=== PATIENT | male | born 1955 | race African-American/Black ===

== ENCOUNTER 2020-10-14 09:12 | Outpatient (CLI) | payer MEDICARE, MEDICAID, SELFPAY ==
[2020-10-14 11:03] LABS: Anion Gap 6 mmol/L (8-16); Blood Urea Nitrogen 19 mg/dL (9-20); Calcium 9.6 mg/dL (8.4-10.2); Carbon Dioxide 30 mmol/L (22-30); Chloride 105 mmol/L (98-107); Estimated Glomerular Filt Rate > 60; Glucose 107 mg/dL (75-110); Sodium 141 mmol/L (137-145)
[2020-10-14 11:25] LABS: Hemoglobin A1C 5.4 % (<5.7)
== END 2020-10-14 09:13 | disposition home or self-care (01) ==
PROVIDERS: Anesthesiology; PCP Family Medicine; Visit Provider Urology
DX: N52.9 Male erectile dysfunction, unspecified (principal); Z79.899 Other long term (current) drug therapy; Z01.818 Encounter for other preprocedural examination
CPT/HCPCS: 36415; 80048; 83036; 87086

== ENCOUNTER 2020-10-30 00:41 | Outpatient (CLI) | payer MEDICARE, MEDICAID, SELFPAY ==
[2020-10-30 18:47] LABS: SARS-CoV-2 RNA PCR Negative
== END 2020-10-30 00:42 | disposition home or self-care (01) ==
LOC: ANHCOVIDDT 00:42
PROVIDERS: PCP Family Medicine; Visit Provider Urology
DX: Z01.812 Encounter for preprocedural laboratory examination (principal); Z20.822 Contact with and (suspected) exposure to COVID-19
CPT/HCPCS: C9803; U0003; U0005

== ENCOUNTER 2020-11-03 01:24 | Day surgery (SDC) | payer MEDICARE, MEDICAID, SELFPAY ==
[2020-10-14 09:43] VITALS: BP 132/76; PULSE 74; RESP 18; TEMP 36.2; O2SAT 97; BMI 41.3
[2020-11-03] VITALS (13 sets, daily range): BP systolic 111–174; BP diastolic 61–101; PULSE 75–82; RESP 18–23; TEMP 36.1–36.6; O2SAT 96–100
[2020-11-03] MEDS: LACTATED RINGERS 1,000 ML 30 ML IV CONT (10:25)
--- NOTE | 2020-11-03 11:27 | P.PNAN_ITS ---
Anes - Initial Pre Proc Eval Procedure: Operation Date: 11/03/20 12:00 Proposed Procedures p Insertion Inflatable Penile Prosthesis - Christian Muir MD Date/Time: 11/03/20 11:27 Surgeon: Christian Muir MD Pre Op Diagnosis: erectile dysfunction Patient Data Age: 65 Gender: M Height: 6 ft 2.5 in Weight: 146.9 kg Last Vital Signs Temp 97.0 F L 11/03/20 10:03 Pulse 77 11/03/20 10:03 Resp 20 11/03/20 10:03 BP 120/76 11/03/20 10:03 Pulse Ox 100 11/03/20 10:03 Allergies Allergy/AdvReac Type Severity Reaction Status Date / Time No Known Allergies Allergy Verified 10/14/20 09:28 Home Medications Medication Instructions Recorded Confirmed Type allopurinol 30 mg PO QAM 10/14/20 11/03/20 History bicalutamide 50 mg PO QAM 10/14/20 11/03/20 History dabigatran etexilate [Pradaxa] 150 mg PO BID 10/14/20 11/03/20 History furosemide 40 mg PO QAM 10/14/20 11/03/20 History isosorbide mononitrate 30 mg PO QAM 10/14/20 11/03/20 History lisinopril 20 mg PO QAM 10/14/20 11/03/20 History metoprolol succinate 100 mg PO BID 10/14/20 11/03/20 History spironolactone 12.5 mg PO QAM 10/14/20 11/03/20 History Patient hx anesthesia problems: none Family hx anesthesia problems: none [facility] Past Medical History Medical History (Updated 11/03/20 @ 11:27 by David Diaz MD) Atrial fibrillation H/O colon cancer, stage I H/O prostate cancer Hyperlipidemia Hypertension MICAELA (obstructive sleep apnea) Surgical History Surgical History (Updated 11/03/20 @ 11:27 by David Diaz MD) AICD (automatic cardioverter/defibrillator) present Social History Social History (System 09/08/19 @ 13:00 by Soraya Lugo) Smoking packs per day: 1 Smoking cigarettes per day: 20.0 Years smoked: 50 Smoking pack-years: 50.00 Smoking status: Current every day smoker Tobacco type: cigarettes Alcohol intake: current Drinks per week: 8 Substance use: never Living arrangements: alone Spiritual care concerns: No Anes - Eval Final PreProcedure Day of Procedure 11/03/20 11:27 Patient weight: morbidly obese Heart: regular rate and rhythm Lungs: clear to auscultation Airway: Mallampati scale class III Neurological: alert and oriented Last oral intake: >/= 8 hours ASA classification: IV Emergent: no Anesthetic plan: proceed Anesthesia type and monitoring: general LMA (or ETT) and standard monitoring Informed Consent: The patient's anesthetic plan and its attendant risks and benefits were discussed with the patient/family/POA. Questions were solicited and answers provided to the satisfaction of the patient/family/POA.
--- NOTE | 2020-11-03 12:19 | WPDHPUPDATE1 ---
History and Physical Update Update Date/Time: 11/03/20 12:19 History and Physical has been reviewed, including an updated exam of the patient. There are NO changes in the patient's condition. Risks, benefits, and alternatives have been discussed and questions answered. Patient agrees to proceed with procedure.
[2020-11-03] MEDS: LIDOCAINE HCL 1% LOCAL INJ 10 ML VIAL 20 ML INFILTRATE (13:46)
--- NOTE | 2020-11-03 15:49 | PM.PROC ---
Procedure Note - Detailed Date of procedure: 11/03/20 Pre-op diagnosis: erectile dysfunction Post-op diagnosis: same Procedure performed: Placement of Ambicor (2 piece) inflatable penile implant, artificial erection using pharmacologic agent Description of procedure: Informed consent was obtained. Patient taken the operating. preoperative IV antibiotics given. He had received oral antibiotics and Hibiclens wash at home. The patient was induced with anesthesia. He was prepped with Betadine scrub and paint followed by ChloraPrep. Drapes placed was again prepped with ChloraPrep. A 16 F Hurtado catheter was inserted with return of clear urine. An artificial erection was performed using dilute lidocaine, there was mild dorsal curvature and the left corporal body did dilate more than the right with lateral deflection of the glans. A 3cm midline penoscrotal incision was made with dissected down to the corporal bodies taking great care not to injure the urethra. We then identified the right corporal body stay sutures were placed. We then opened the corpora we irrigated and there was no injury. We dilated using Allen dilators starting at 9 up to 12. There was significant fibrosis with dilation. We then irrigated again there was no injury. We then performed an identical procedure on the contralateral side again with a fibrotic dilation up to 12 Allen dilation. Irrigation was performed there is no urethral injury. Again with irrigation of the left corporal body it did retain more fluid with lateral deviation of the glans. Stay sutures with 2-0 PDS were placed in the corpora. We then measured 13cm proximal and 7 cm distal on each side. The tips sat at the proximal glans. We then placed a 16cm x12.5mm Ambicor penile implant. The device sat nicely in the corpora. The Gregory needles were passed through the Jessica tool and exited in the distal glans. The right cylinder tip was in the mid glans in the left cylinder sat in the dilated space on the left that was mid glans however the glans did appear more mobile on the left side. We then reinserted the left cylinder and again sat in a similar location with the tips more in the proximal glans. Inflation and deflation were performed with reasonable positioning. As this was the patient's preoperative anatomy with more laxity in the left corporal body, this seemed to be a very nice positioning for this patient. We elected not to perform additional dissection or repair of the left corpora. We then closed the pre-placed 2 0 PDS sutures. At this point there was nice positioning of the implant. It functioned nicely. We then made a subdartos pouch for the scrotal pump. We then irrigated copiously we closed in multiple layers of 3 0 Vicryl suture followed by 3 0 Monocryl horizontal mattress suture. Glue was placed. A compressive dressing was placed. The patient has taken to PACU stable condition Anesthesia: GETA Surgeon: Christian Muir MD Estimated blood loss (mL): 50 Drains: No Packing: No Pathology: none sent Complications: No immediate complications Condition: stable Disposition: PACU
--- NOTE | 2020-11-03 16:36 | SUR.PHASEI ---
1600 pacemaker rep to bedside for interogation/report on chart/no distress noted
[2020-11-03] MEDS: HYDROcodone/acetaminophen (*CRX) 5-325 MG TABLET 1 TAB PO (18:06)
[2020-11-03] MEDS: DEXTROSE 5%/0.45% SOD CHL 1,000 ML 125 ML IV CONT (18:08)
--- NOTE | 2020-11-03 18:15 | ADMGEN ---
This patient, Florencio Adames, was admitted to Medical Room 261-01. Patient/family oriented to hospital policies and general routines including ID bracelet, bed and alarms, visiting hours, pain management, procedures, bathroom and other care routines, personal items, smoking policy, room service/diet, and visiting hours. Information on how to activate the Rapid Response Team has been discussed. Patient/Family are encouraged to report perceived risks to care and to ask questions if they do not understand what they are told or what they should do.
[2020-11-03] MEDS: METOPROLOL SUCCINATE EXT REL 100 MG TABCR PO (20:25)
[2020-11-03] MEDS: MORPHINE SULFATE (*CRX) 2 MG/ML INJ IV PUSH (20:31)
[2020-11-04] VITALS: BP 101/54; PULSE 75; RESP 18; TEMP 36.1; O2SAT 99
[2020-11-04] MEDS: HYDROcodone/acetaminophen (*CRX) 5-325 MG TABLET 1 TAB PO ×4 (00:57→15:29)
[2020-11-04 04:00] VITALS: BP 155/96; PULSE 77; RESP 20; TEMP 36.3; O2SAT 100
[2020-11-04] MEDS: DEXTROSE 5%/0.45% SOD CHL 1,000 ML 125 ML IV CONT (06:09)
--- NOTE | 2020-11-04 09:22 | WPDANESPN ---
Anes - Prog Note Post-Op Date/Time: 11/04/20 09:22 Cardiovascular status: normal Respiratory status: normal Airway patency: baseline Mental status: baseline Post-Op hydration status: normal Vital Signs: Last Vital Signs Temp 36.3 C L 11/04/20 04:00 Pulse 77 11/04/20 04:00 Resp 20 11/04/20 04:00 BP 155/96 H 11/04/20 04:00 Pulse Ox 100 11/04/20 04:00 Pain Score (VAS): 10/10 I/O: Intake & Output 11/03/20 11/04/20 11/04/20 23:59 07:59 15:59 Intake Total 1700 240 Output Total 150 1000 Balance -150 700 240 Post-procedural complaints: none Patient Feedback: Patient satisfied with anesthetic care.
[2020-11-04 09:49] VITALS: PULSE 64
[2020-11-04] MEDS: lisinopriL 20 MG TABLET PO (09:49)
[2020-11-04] MEDS: SPIRONOLACTONE 12.5 MG TABLET PO (09:49)
[2020-11-04] MEDS: allopurinoL 300 MG TABLET PO (09:49)
[2020-11-04] MEDS: FUROSEMIDE 40 MG TABLET PO (09:49)
[2020-11-04] MEDS: METOPROLOL SUCCINATE EXT REL 100 MG TABCR PO (09:49)
[2020-11-04] MEDS: BICALUTAMIDE (*CHEMO) 50 MG TABLET PO (09:49)
[2020-11-04] MEDS: ISOSORBIDE MONONITRATE 30 MG TAB.ER.24H PO (09:50)
[2020-11-04] MEDS: ENOXAPARIN 40 MG/0.4 ML SYRINGE SUB-Q (09:50)
[2020-11-04 10:00] VITALS: BP 108/59; PULSE 76; RESP 21; TEMP 36.9; O2SAT 97
--- NOTE | 2020-11-04 12:02 | WPDUROPN2 ---
Progress Note: A&P Assessment and Plan (1) Erectile dysfunction: Code(s): N52.9 - Male erectile dysfunction, unspecified Status: Acute Assessment and Plan: After noon dose of antibiotics and the patient is able to urinate without the sultana he may be discharged home. Subjective Subjective Date/Time Seen: 11/04/20 12:02 POD #1 Placement of Ambicor 2 piece IPP. Patient doing very well, he is having minimal pain. Review of Systems Cardiovascular: Cardiovascular: Denies chest pain Respiratory: Respiratory: Reports no additional respiratory complaints Gastrointestinal: Gastrointestinal: Denies abdominal pain, Denies nausea and Denies vomiting Genitourinary: Genitourinary: Denies hematuria Exam Resp: Effort & Inspection: normal respiratory effort Cardio: Rate: regular rate GI: GI Palp: Yes Soft to palpation and No Tenderness to palpation present (GI) : General: Yes no CVA tenderness Scrotum: scrotum normal, no ecchymosis, not edematous and other (incisions are well approximated, no drainage or edema present) Urinary Catheter: Urinary Catheter: patent and draining and urine clear Extrem: General: no edema Objective Data Vital Signs Vital Signs: Vital Signs - 24 hr 11/03/20 15:39 11/03/20 15:54 11/03/20 16:09 Temperature 97.5 F L Pulse Rate 75 75 75 Respiratory Rate 18 23 H 22 H Blood Pressure 147/92 H 159/98 H 161/101 H Pulse Oximetry 100 96 98 11/03/20 16:24 11/03/20 16:39 11/03/20 16:54 Temperature Pulse Rate 75 75 75 Respiratory Rate 18 18 21 H Blood Pressure 174/93 H 168/74 H 162/95 H Pulse Oximetry 98 97 96 11/03/20 17:09 11/03/20 18:00 11/03/20 18:15 Temperature 97.6 F 97.4 F L Pulse Rate 75 75 75 Respiratory Rate 20 20 20 Blood Pressure 168/74 H 127/89 116/69 Pulse Oximetry 96 100 98 11/03/20 18:45 11/03/20 20:00 11/03/20 20:25 Temperature 97.8 F 97.5 F L Pulse Rate 75 82 82 Respiratory Rate 20 18 Blood Pressure 111/76 118/61 Pulse Oximetry 99 100 11/04/20 00:00 11/04/20 04:00 11/04/20 09:49 Temperature 97 F L 97.4 F L Pulse Rate 75 77 64 Respiratory Rate 18 20 Blood Pressure 101/54 L 155/96 H Pulse Oximetry 99 100 11/04/20 10:00 Temperature 98.5 F Pulse Rate 76 Respiratory Rate 21 H Blood Pressure 108/59 L Pulse Oximetry 97 Intake/Output Intake/Output: Intake & Output 11/01/20 11/02/20 11/03/20 11/04/20 23:59 23:59 23:59 23:59 Intake Total 378.608 0474 Output Total 400 1000 Balance 213.625 940 Meds/Results Medications: Active Medications Generic Name Dose Route Start Last Admin Trade Name Freq PRN Reason Stop Dose Admin Hydrocodone Bitart/Acetaminophen 1 tab 11/03/20 17:15 11/04/20 10:08 Hydrocodone/Acetaminophen (*Crx) 5-325 Mg Tablet PO 1 tab Q4H PRN Administration Pain Rated 1-6 Allopurinol 300 mg 11/04/20 09:00 11/04/20 09:49 Allopurinol 300 Mg Tablet PO 300 mg QAM PREMA Administration Bicalutamide 50 mg 11/04/20 09:00 11/04/20 09:49 Bicalutamide (*Chemo) 50 Mg Tablet PO 50 mg QAM PREMA Administration Enoxaparin Sodium 40 mg 11/04/20 09:00 11/04/20 09:50 Enoxaparin 40 Mg/0.4 Ml Syringe SUB-Q 40 mg DAILY PREMA Administration Furosemide 40 mg 11/04/20 09:00 11/04/20 09:49 Furosemide 40 Mg Tablet PO 40 mg QAM PREMA Administration Hyoscyamine 0.125 mg 11/03/20 17:15 Hyoscyamine Sulfate 0.125 Mg Tablet SUBLINGUAL Q6H PRN Bladder Spasm Dextrose/Sodium Chloride 1,000 mls @ 125 mls/hr 11/03/20 17:15 11/04/20 06:09 Dextrose 5% Sodium Chloride 0.45% IV CONT 125 mls/hr .Q8H PREMA Administration Isosorbide Mononitrate 30 mg 11/04/20 09:00 11/04/20 09:50 Isosorbide Mononitrate 30 Mg Tab.Er.24h PO 30 mg QAM PREMA Administration Levofloxacin 500 mg 11/04/20 09:00 11/04/20 09:49 Levofloxacin Tab 500 Mg Tablet PO 500 mg QAM PREMA Administration Lisinopril 20 mg 11/04/20 09:00 11/04/20 09:49 Lisinopril 20
[2020-11-04] MEDS: GENTAMICIN 80MG/SOD CHL 50 ML 80 MG/50 ML BAG 100 MG IVPB (13:21)
[2020-11-04 13:56] VITALS: BP 117/69; PULSE 63; RESP 19; TEMP 36.8; O2SAT 92
== END 2020-11-04 15:30 | disposition home or self-care (01) ==
LOC: ANHSURGERY 09:46 → ANH2MED 17:38
PROVIDERS: PCP Family Medicine; Visit Provider Urology
PROC: (CPT 54405; principal; 2020-11-03 12:00)
DX: N52.9 Male erectile dysfunction, unspecified (principal); I48.91 Unspecified atrial fibrillation; I10 Essential (primary) hypertension; E78.5 Hyperlipidemia, unspecified; G47.33 Obstructive sleep apnea (adult) (pediatric); Z85.46 Personal history of malignant neoplasm of prostate; Z85.038 Personal history of other malignant neoplasm of large intestine; Z95.810 Presence of automatic (implantable) cardiac defibrillator; F17.210 Nicotine dependence, cigarettes, uncomplicated; E66.01 Morbid (severe) obesity due to excess calories; Z68.41 Body mass index [BMI] 40.0-44.9, adult
CPT/HCPCS: 54405; 54235; A9270; J0330; J1100; J1170; J1580; J1650; J2250; J2270; J2370; J2405; J2704; J3010; J3370; J7030; J7120